=== PATIENT | female | born 1985 | race Caucasian/White ===

== ENCOUNTER → 2020-07-31 16:37 | Outpatient (BNVA) | payer SELFPAY | PROVIDERS: Family Provider Family Medicine; PCP Family Medicine; Visit Provider Nurse Practitioner Family | DX: M25.531 Pain in right wrist (principal); M25.431 Effusion, right wrist | CPT/HCPCS: 73110 ==

== ENCOUNTER → 2020-10-30 11:33 | Outpatient (BNVA) | payer MEDICAID, SELFPAY | PROVIDERS: Family Provider Family Medicine; PCP Family Medicine; Visit Provider Nurse Practitioner Women's Health | DX: Z32.01 Encounter for pregnancy test, result positive (principal); Z78.9 Other specified health status | CPT/HCPCS: 81025 ==

== ENCOUNTER → 2020-11-03 10:31 | Outpatient (BNVA) | payer MEDICAID, SELFPAY | PROVIDERS: Family Provider Family Medicine; PCP Family Medicine; Visit Provider Nurse Practitioner Women's Health | DX: Z32.01 Encounter for pregnancy test, result positive (principal); Z78.9 Other specified health status | CPT/HCPCS: 84702 ==

== ENCOUNTER → 2020-11-12 13:27 | Outpatient (BNVA) | payer MEDICAID, SELFPAY | PROVIDERS: Family Provider Family Medicine; PCP Family Medicine; Visit Provider Nurse Practitioner Women's Health | DX: Z34.80 Encounter for supervision of other normal pregnancy, unspecified trimester (principal) | CPT/HCPCS: 81000 ==

== ENCOUNTER → 2020-11-18 14:04 | Outpatient (BNVA) | payer MEDICAID, SELFPAY | PROVIDERS: Family Provider Family Medicine; PCP Family Medicine; Visit Provider Obstetrics & Gynecology | DX: Z34.80 Encounter for supervision of other normal pregnancy, unspecified trimester (principal); Z64.1 Problems related to multiparity | CPT/HCPCS: 80307; 84315; 86850; 86900; 87086 ==

== ENCOUNTER → 2020-11-24 10:00 | Outpatient (BNVA) | payer MEDICAID, SELFPAY | PROVIDERS: Family Provider Family Medicine; PCP Family Medicine; Visit Provider Obstetrics & Gynecology | DX: Z64.1 Problems related to multiparity (principal); Z34.80 Encounter for supervision of other normal pregnancy, unspecified trimester | CPT/HCPCS: 81000; 85025; 86592; 86762; 86803; 87340; 87491; 87591; 87661; 88175 ==

== ENCOUNTER → 2020-12-31 09:40 | Outpatient (BNVA) | payer SELFPAY | PROVIDERS: Family Provider Family Medicine; PCP Family Medicine; Visit Provider Nurse Practitioner Women's Health | DX: O09.90 Supervision of high risk pregnancy, unspecified, unspecified trimester (principal) | CPT/HCPCS: 81000; 87661 ==

== ENCOUNTER → 2021-02-02 08:15 | Outpatient (BNVA) | payer MEDICAID, SELFPAY | PROVIDERS: Family Provider Family Medicine; PCP Family Medicine; Visit Provider Obstetrics & Gynecology | DX: O09.90 Supervision of high risk pregnancy, unspecified, unspecified trimester (principal); Z3A.00 Weeks of gestation of pregnancy not specified | CPT/HCPCS: 81000 ==

== ENCOUNTER → 2021-02-23 10:20 | Outpatient (BNVA) | payer MEDICAID, SELFPAY | PROVIDERS: Family Provider Family Medicine; PCP Family Medicine; Visit Provider Nurse Practitioner Women's Health | DX: O09.90 Supervision of high risk pregnancy, unspecified, unspecified trimester (principal) | CPT/HCPCS: 81000 ==

== ENCOUNTER 2021-03-17 12:08 | Outpatient (CLI) | payer MEDICAID, SELFPAY ==
[2021-03-17] VITALS (13 sets, daily range): BP systolic 98–111; BP diastolic 53–59; PULSE 64–83; RESP 18; TEMP 36.2; BMI 31.0
[2021-03-17 13:00] LABS: Add Urine Microscopic? NO; Charge for UA Resulting for Rev
[2021-03-17 13:02] LABS: Basophils % 0.3 %; Eosinophils # 0.1 10^3/uL (0.0-0.8); Eosinophils % 1.1 %; Hematocrit 32.7 % (37.0-47.0); Hemoglobin 10.6 g/dL (11.5-15.3); Lymphocytes # 1.4 10^3/uL (0.8-4.8); Lymphocytes % 12.1 %; Mean Corpuscular HGB Conc 32.4 g/dL (30.0-36.0); Mean Corpuscular Hemoglobin 29.8 pg (28.0-34.0); Mean Corpuscular Volume 91.9 fl (81-99); Mean Platelet Volume 11.1 fL (7.4-10.4); Monocytes # 0.6 10^3/uL (0.2-0.9); Monocytes % 5.4 %; Neutrophils # 9.37 10^3/uL (1.8-7.7); Neutrophils % 80.8 %; Nucleated Red Blood Cells % 0 %; Platelet Count 191 10^3/cmm (130-400); Red Blood Count 3.56 10^6/uL (4.1-5.3); Red Cell Distribution Width 12.3 % (12.1-15.1); White Blood Count 11.6 10^3/uL (4.0-10.0)
[2021-03-17] MEDS: acetaminophen 500 mg Tablet 1000 MG PO (13:03)
[2021-03-17 13:31] LABS: Glucose Urine UA Norm (Normal); Ketones Urine 1+ (Negative); Protein Urine Neg (Negative); Specific Gravity, Urine 1.015 (1.005-1.030); Urine Appearance Clear (CLEAR); Urine Color Straw (Yellow); pH Urine 5 (5-7)
[2021-03-17 13:32] LABS: Bilirubin Urine Neg (Negative); Blood Urine Neg (Negative); Leukocyte Esterase Urine Negative (Negative); Nitrate Urine Negative (Negative); Urobilinogen Urine Norm (Negative)
[2021-03-17 14:37] LABS: Alanine Aminotransferase 9 U/L (0-33); Albumin Level 3.3 g/dL (3.5-5.2); Alkaline Phosphatase 53 IU/L (35-105); Anion Gap 13.5 (5-19); Aspartate Amino Transferase 11 U/L (0-32); Blood Urea Nitrogen 6 mg/dL (6-20); Calcium 7.7 mg/dL (8.5-10.5); Carbon Dioxide 22 mmol/L (22-29); Chloride 105 mmol/L (98-107); Globulin 2.2 g/dL (1.3-4.6); Glomerular Filtration Rate 181.6 mL/min (90-130); Glucose 87 mg/dL (65-115); Osmolality Calculated 281 mOsm/kg (285-295); Potassium 3.5 mmol/L (3.5-5.1); Sodium 137 mmol/L (136-145); Total Bilirubin 0.2 mg/dL (0.15-1.2); Total Protein 5.5 g/dL (6.6-8.7); Uric Acid 2.5 mg/dL (2.4-5.7)
[2021-03-17 15:32] LABS: Urine Creatinine 68 mg/dL (28-217); Urine Protein Random 9 mg/dL
[2021-03-17 15:35] LABS: UPRO/UCREAT Ratio 0.13 mg/mg CR
== END 2021-03-17 16:00 | disposition home or self-care (01) ==
LOC: OPOB 12:12 → OBGYN 12:14
PROVIDERS: Family Provider Family Medicine; PCP Family Medicine; Visit Provider Obstetrics & Gynecology
DX: O99.891 Other specified diseases and conditions complicating pregnancy (principal); R60.0 Localized edema; R51.9 Headache, unspecified
CPT/HCPCS: 36415; 80053; 81003; 82570; 84156; 84550; 85025; 99211

== ENCOUNTER → 2021-03-29 10:28 | Outpatient (BNVA) | payer MEDICAID, SELFPAY | PROVIDERS: Family Provider Family Medicine; PCP Family Medicine; Visit Provider Obstetrics & Gynecology | DX: O09.90 Supervision of high risk pregnancy, unspecified, unspecified trimester (principal); A59.01 Trichomonal vulvovaginitis | CPT/HCPCS: 81000; 82950; 85027; 87661 ==

== ENCOUNTER → 2021-04-05 08:11 | Outpatient (BNVA) | payer MEDICAID, SELFPAY | PROVIDERS: Family Provider Family Medicine; PCP Family Medicine; Visit Provider Obstetrics & Gynecology | DX: O09.90 Supervision of high risk pregnancy, unspecified, unspecified trimester (principal) | CPT/HCPCS: 81000; 82951; 82952; 87661 ==

== ENCOUNTER 2021-04-09 09:10 | Outpatient (CLI) | payer MEDICAID, SELFPAY ==
[2021-04-09 09:30] VITALS: BMI 32.2
[2021-04-09 09:31] VITALS: BP 116/74; PULSE 71
[2021-04-09 10:01] VITALS: BP 111/59; PULSE 68
[2021-04-09 11:59] VITALS: BP 111/59; PULSE 68; RESP 18; TEMP 36.8
== END 2021-04-09 10:10 | disposition home or self-care (01) ==
LOC: OPOB 09:20 → OBGYN 09:21
PROVIDERS: Family Provider Family Medicine; PCP Family Medicine; Visit Provider Obstetrics & Gynecology
DX: O36.8190 Decreased fetal movements, unspecified trimester, not applicable or unspecified (principal)
CPT/HCPCS: 59025; 99211

== ENCOUNTER 2021-04-18 08:38 | Outpatient (CLI) | payer MEDICAID, SELFPAY ==
[2021-04-18 08:38] VITALS: BMI 32.8
[2021-04-18 08:47] VITALS: BP 118/65; PULSE 78
--- NOTE | 2021-04-18 09:26 | USR_ITS ---
PROCEDURE INFORMATION: Exam: US Biophysical Profile Without Non-Stress Test Exam date and time: 04/18/2021 9:26 AM Age: 35 years old Clinical indication: Other: No accelerations; TECHNIQUE: Imaging protocol: US biophysical profile without non-stress testing. COMPARISON: US OB >= 14 weeks fetus [facility] 02/02/2021 7:48 AM FINDINGS: Gestation: There is a single viable intrauterine fetus in the vertex position. heart rate: heart rate is 141 BPM. BIOPHYSICAL PROFILE: Breathin/2 Gross body movements: 2/2 tone: 2/2 Qualitative amniotic fluid: 2/2 Biophysical Profile Score: 8/8 US/US OB BPP wo NST [id number] IMPRESSION: Biophysical profile score is 8 out of 8.
[2021-04-18 10:53] VITALS: BP 118/65; PULSE 78
[2021-04-18 17:30] LABS: Nitrazine Paper, PH Negative
== END 2021-04-18 10:53 | disposition home or self-care (01) ==
LOC: OPOB 08:41 → OBGYN 08:43
PROVIDERS: Family Provider Family Medicine; PCP Family Medicine; Visit Provider Obstetrics & Gynecology
DX: O26.899 Other specified pregnancy related conditions, unspecified trimester (principal); Z3A.00 Weeks of gestation of pregnancy not specified; R10.9 Unspecified abdominal pain; N89.8 Other specified noninflammatory disorders of vagina
CPT/HCPCS: 59025; 76819; 83986; 99211

== ENCOUNTER 2021-04-21 12:27 | Outpatient (CLI) | payer MEDICAID, SELFPAY ==
[2021-04-21] VITALS (8 sets, daily range): BP systolic 108–117; BP diastolic 54–61; PULSE 75–84; RESP 17; TEMP 36; BMI 33.7
[2021-04-21 13:30] LABS: Actim Prom Negative
== END 2021-04-21 14:01 | disposition home or self-care (01) ==
LOC: OPOB 12:37 → OBGYN 12:41
PROVIDERS: Obstetrics & Gynecology; Family Provider Family Medicine; PCP Family Medicine; Visit Provider Obstetrics & Gynecology
DX: O36.8190 Decreased fetal movements, unspecified trimester, not applicable or unspecified (principal); Z3A.00 Weeks of gestation of pregnancy not specified; N89.8 Other specified noninflammatory disorders of vagina
CPT/HCPCS: 59025; 81000; 84112; 87661; 99211

== ENCOUNTER 2021-04-28 20:05 | Outpatient (CLI) | payer MEDICAID, SELFPAY ==
[2021-04-28 20:18] VITALS: BP 137/59; PULSE 86; TEMP 35.5
[2021-04-28 20:27] VITALS: RESP 16
[2021-04-28 20:30] VITALS: BMI 33.5
[2021-04-28 20:33] VITALS: BP 107/57; PULSE 81
[2021-04-28 20:43] VITALS: BP 107/61; PULSE 78
[2021-04-28 20:52] LABS: Add Urine Culture? No; Bacteria Urine 1+ /hpf; Bilirubin Urine Neg (Negative); Blood Urine Neg (Negative); Glucose Urine UA Norm (Normal); Ketones Urine 1+ (Negative); Leukocyte Esterase Urine Negative (Negative); Nitrate Urine Negative (Negative); Protein Urine Neg (Negative); RBC Urine 0-4 /hpf (0-2); Urine Appearance Clear (CLEAR); Urine Color Yellow (Yellow); Urobilinogen Urine Norm (Negative); pH Urine 7 (5-7)
[2021-04-28 20:53] VITALS: BP 111/59; PULSE 85
[2021-04-28 21:08] VITALS: BP 104/55; PULSE 74
== END 2021-04-28 21:47 | disposition home or self-care (01) ==
LOC: OPOB 20:10 → OBGYN 20:10
PROVIDERS: Family Provider Family Medicine; PCP Family Medicine; Visit Provider Obstetrics & Gynecology
DX: O26.899 Other specified pregnancy related conditions, unspecified trimester (principal); Z3A.00 Weeks of gestation of pregnancy not specified; R10.9 Unspecified abdominal pain
CPT/HCPCS: 59025; 81001; 99211

== ENCOUNTER → 2021-05-04 12:08 | Outpatient (BNVA) | payer MEDICAID, SELFPAY | PROVIDERS: Family Provider Family Medicine; PCP Family Medicine; Visit Provider Obstetrics & Gynecology | DX: O09.90 Supervision of high risk pregnancy, unspecified, unspecified trimester (principal) | CPT/HCPCS: 81000 ==

== ENCOUNTER 2021-05-06 10:40 | Outpatient (CLI) | payer MEDICAID, SELFPAY ==
[2021-05-06 10:59] VITALS: BP 107/56; PULSE 80
[2021-05-06 11:16] VITALS: BP 109/56; PULSE 80
[2021-05-06 11:30] VITALS: BP 101/58; PULSE 79
[2021-05-06 11:41] VITALS: BMI 33.5
[2021-05-06 12:34] LABS: Nitrazine Paper, PH Negative
== END 2021-05-06 12:00 | disposition home or self-care (01) ==
LOC: OPOB 10:48 → OBGYN 10:50
PROVIDERS: Family Provider Family Medicine; PCP Family Medicine; Visit Provider Obstetrics & Gynecology
DX: O26.899 Other specified pregnancy related conditions, unspecified trimester (principal); Z3A.00 Weeks of gestation of pregnancy not specified; N89.8 Other specified noninflammatory disorders of vagina
CPT/HCPCS: 59025; 83986; 99211

== ENCOUNTER 2021-05-10 20:50 | Outpatient (CLI) | payer MEDICAID, SELFPAY ==
[2021-05-10] VITALS (7 sets, daily range): BP systolic 106–117; BP diastolic 55–67; PULSE 67–81; RESP 18; BMI 33.6
[2021-05-10] MEDS: acetaminophen 325 mg Tablet 650 MG PO (21:47)
[2021-05-10 21:52] LABS: Add Urine Culture? No; Add Urine Microscopic? YES; Bacteria Urine 1+ /hpf; Bilirubin Urine Neg (Negative); Blood Urine Neg (Negative); Glucose Urine UA Norm (Normal); Ketones Urine Negative (Negative); Leukocyte Esterase Urine 2+ (Negative); Nitrate Urine Negative (Negative); Protein Urine Neg (Negative); RBC Urine 0-4 /hpf (0-2); Specific Gravity, Urine 1.005 (1.005-1.030); Urine Appearance SL Hazy (CLEAR); Urine Color Colorless (Yellow); Urobilinogen Urine Norm (Negative); WBC Urine 55-80 /hpf (0-5); pH Urine 6.5 (5-7)
== END 2021-05-10 23:21 | disposition home or self-care (01) ==
LOC: OPOB 20:55 → OBGYN 20:55
PROVIDERS: Family Provider Family Medicine; PCP Family Medicine; Visit Provider Obstetrics & Gynecology
DX: O26.899 Other specified pregnancy related conditions, unspecified trimester (principal); Z3A.00 Weeks of gestation of pregnancy not specified; R10.9 Unspecified abdominal pain; R60.9 Edema, unspecified; R51.9 Headache, unspecified
CPT/HCPCS: 59025; 81001; 99211

== ENCOUNTER 2021-05-11 10:51 | Inpatient (IN) | payer MEDICAID, SELFPAY ==
[2021-05-11] VITALS (20 sets, daily range): BP systolic 108–130; BP diastolic 55–74; PULSE 61–88; RESP 16–18; TEMP 35.3–37
[2021-05-11] MEDS: betamethasone susp 6 mg/mL 5 mL 12 MG IM (11:16)
[2021-05-11] MEDS: dextrose 5%-lactated ringers 1,000 ML 125 ML IV ×2 (11:17→19:37)
[2021-05-11 11:39] LABS: Basophils % 0.3 %; Eosinophils # 0.1 10^3/uL (0.0-0.8); Eosinophils % 0.4 %; Hematocrit 32.3 % (37.0-47.0); Hemoglobin 10.6 g/dL (11.5-15.3); Lymphocytes # 1.1 10^3/uL (0.8-4.8); Lymphocytes % 7.3 %; Mean Corpuscular HGB Conc 32.8 g/dL (30.0-36.0); Mean Corpuscular Hemoglobin 29.4 pg (28.0-34.0); Mean Corpuscular Volume 89.7 fl (81-99); Mean Platelet Volume 11.7 fL (7.4-10.4); Monocytes # 0.8 10^3/uL (0.2-0.9); Monocytes % 5.5 %; Neutrophils # 12.76 10^3/uL (1.8-7.7); Neutrophils % 85.9 %; Nucleated Red Blood Cells % 0 %; Platelet Count 195 10^3/cmm (130-400); Red Cell Distribution Width 13.2 % (12.1-15.1); White Blood Count 14.9 10^3/uL (4.0-10.0)
--- NOTE | 2021-05-11 12:00 | PM.OBGYHP ---
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 She had been seen on 05/10/2021 in labor and delivery for contractions which subsided and she was intact at that time and her cervix was 1 cm, 20% and -4 station.. She states that she woke up this morning and felt a little gush which she thought was urine and she was not very concerned. It was clear however did not smell like urine. She did report having irregular contractions. She states that she placed a panty liner and when she started saturating pantiliners rapidly she knew something was wrong and came in for evaluation. Upon evaluation on Labor and Delivery overall category 1 tracing with occasional variables that resolved with position change. She was pauline irregularly every 3 to 6 minutes. Cervix was 3 cm, 50% and -4 station and cephalic. Present Details : 17 Para: 7 Labs Rubella: Immune RPR: Negative GBS: Unknown Review of Systems General: Reports: 10 or more systems reviewed and unremarkable except in HPI and below Const: Denies: fever(s), chills, change in appetite, change in weight, fatigue, malaise or change in sleep pattern Eyes: Denies: change in vision, eye discomfort, eye discharge or seeing flashes ENMT: Denies: throat pain, odynophagia, hoarseness, bleeding gums, ear discharge, nasal discharge or nasal congestion Card: Denies: chest pain, irregular heart rhythm, edema, swelling of feet/ankles, dyspnea on exertion or leg pain with exertion Resp: Denies: dyspnea, productive cough, wheezing or chest congestion GI: Denies: abdominal pain, nausea, vomiting, heartburn, diarrhea, constipation, change in bowel habits or hematochezia : Reports: vaginal discharge; Denies: flank pain, dysuria, urinary frequency, urinary urgency, urinary incontinence, genital lesions, vaginal odor, vaginal bleeding, dysmenorrhea, change in menstrual flow, prolapse symptoms, dyspareunia or sexual dysfunction Musc: Reports: back pain; Denies: neck pain, joint pain, joint swelling or muscle cramps Skin/Breast: Denies: rash, pruritus, breast tenderness, nipple discharge or breast mass Neuro: Denies: headache(s), numbness in extremities or seizure-like activity Psych: Denies: anxiety, depression, mood swings or change in appetite Endo: Denies: cold intolerance, flushing, hot flashes or change in body appearance Juan/Lymph: Denies: easy bruising, easy bleeding or enlarged lymph nodes All/Imm: Denies: urticaria, tongue swelling, acute wheezing or itchy eyes Medications/Allergies Home Medications Medication Instructions Recorded Confirmed Last Taken Type No Known Home Medications 05/10/21 05/10/21 Unknown History Allergies Allergy/AdvReac Type Severity Reaction Status Date / Time cephalexin [From Keflex] Allergy Mild rash Verified 05/10/21 22:56 latex Allergy Mild ALGY-Rash Verified 05/10/21 22:56 ceftriaxone [From Rocephin] AdvReac Mild ALGY-Swell Verified 05/10/21 22:56 Lip/Tongue/Throat citalopram [From Celexa] AdvReac Mild ALGY-Anaphy Verified 05/10/21 22:56 laxis amoxicillin AdvReac ALGY-Rash Verified 05/10/21 22:56 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 Was on medication then. She thinks it was Zoloft. She does report anxiety and being worried on and off since then and has been on medication in the past but not since 2008-- she tried celexa but had a type of anaphylaxis reaction and has not been on medication since that time. No pertinent past medical history Denies diabetes, asthma, hypertension, seizures, DVT/PE PCP: Dr. Arabella Pozo Surgical History H/O dilation and curettage X 2 --- 05/18/2012-bleeding after Cytotec induction for a missed --performed by Dr. Rodrigues at [facility] [place] ----02/13/2013--- done for vaginal bleeding after Cytotec induction of a missed performed by Dr. Samuel Villa at [facility] [place] Family History Grandmother Diabetes maternal Stroke maternal great grandmother Father Stroke Denies family history of Colon cancer Ovarian cancer Heart disease Hyperlipidemia Breast cancer Hypertension Uterine cancer Thyroid condition Supplemental [facility] Information: - Tobacco Use: Started smoking at age 16 and smoked up to 2 packs per day until until 11/04/20 when she quit smoking for . Started smoking again mid March 2021 and currently smokes up to one pack per day. 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 Last Well Woman Appointment: Unknown per patient. Other Female Reproductive History: Menstrual History Comment: Menarche at the age of 13 with regular 28-day cycles lasting for 3 to 4 days. Sexual History: Sexual History Comment: Coitarche at age 16, more than 5 lifetime partners, has been with her current partner, Greyson since 2015. He also works at [employer] with her. STD History Comment: Denies history of sexually transmitted diseases. Denies history of herpes in her or her partner --- diagnosed with trichomonas in her in 2020 and was treated Contraception: Contraception History Comment: She has used oral contraceptives and condoms in the past for contraception. -->She desires sterilization for contraception -vasectomy History History History 16 Term 7 Miscarriages/Ectopic 7 1 Living Children 8 Other History: G16 P 7178 x 8, SAB x 7 - 1--->08/26/2002. Male,(Anirudh) 6 lbs. 3-1/2 oz., 40 weeks, 6 hours labor. No anesthesia. Vaginal delivery. Delivered by Dr. Arabella Pozo at [facility] in [place], [place]. Complicated by uterine inversion---patient taken to the OR by Dr. Samuel Villa for replacement of uterus. 2--->05/18/2004. Female, (Shu), 7 lbs. 7 oz., 39 weeks, 13 hours labor. No anesthesia. Vaginal delivery. Delivered by Dr. Arabella Pozo at [facility] in [place], [place]. Complicated by hemorrhage. 3--->10/2004, Miscarriage at 5-6 weeks gestation. No D & C required. 4--->05/2006, Miscarriage at 5-6 weeks' gestation. No D & C required. 5---> 05/20/2007. Male, (Sofie), 6 lbs. 11 oz., 40-0/7 weeks, 12 hours labor. No anesthesia. Vaginal delivery. Delivered by Dr. Francis Nayak at [facility] in [place], [place]. 6---> 06/2008 SAB at 5 weeks, required D & C. 7---> 06/07/2009, Female, (Garrett), 7 lbs., 39 weeks,. Vaginal delivery. Delivered by Dr. Polo at [place], [place]. 8---> 11/2009, SAB at 6 weeks, D & C required. 9--->01/2011, SAB at 12 weeks, D & C required. 10---> 11/08/2011. Female, (Geri), 6 lbs. 6 oz., 37 weeks, 4 hours labor. No anesthesia. Vaginal delivery. Delivered by Dr. Polo at [facility] in [place], [place]. 11---> 05/18/2012. Missed at 15 weeks gestation. Induced delivery with D&C for retained placenta 12--->02/13/2013, Missed at 17-6/7 weeks gestation. Induced delivery by Dr. Samuel Villa at [facility] in [place], [place]. Retained placenta treated by D&C. 13---> 12/05/2013, Male, (Kavon), 6 lbs. 2-1/2 oz., 36-6/7 weeks. No anesthesia. Vaginal delivery. Delivered by Dr. Corazon Rodrigues and [facility] in [place], [place]. 14--->02/22/2015, Male, (Olu). 7 lbs., 13.5 oz., 39-0/7 weeks gestation. Vaginal Delivery. Induced delivery by Dr. Samuel Villa at [facility] in [place], [place]. 15---> 01/15/2018, Male, (Ivan), 6 lbs. 12 oz., 39-1/7 weeks gestation. Vaginal delivery. Induction for premature rupture of membranes. Delivered by Dr. De Anda at [facility] in [place], [place]. 16---> Current Care HARINDER Calculator Estimated Delivery Date Method Current WG Current Estimate 06/12/21 Ultrasound #1 36w 4d Other Estimates 06/05/21 LMP (Uncertain) 37w 4d 06/12/21 Manual 36w 4d CHANGED PER KIN Expected Delivery Route/Plan Vaginal Specific Issues/Plans ADVANCED MATERNAL AGE-declined NIPT ANXIETY AND DEPRESSION-not on medication in the GRAND MULTIPARA/HISTORY HEMORRHAGE--WITH SECOND DELIVERY IN 2004-NONE SINCE THEN TOBACCO USE-stopped at the start of , restarted 1 pack/day at 28 weeks REQUEST FOR STERILIZATION-Medicaid consent signed on 03/29/2021 TRICHOMONAS- status post treatment at 12 weeks with positive test at 16 weeks and again at 28 weeks-repeat screening with cervical swab-done on 04/05/2021 which was positive-completed a 2-week course on 04/30/2021 Vitals/I&O/Wt Last Vital Signs Temp 100.9 F H 05/11/21 09:06 Pulse 77 05/11/21 15:09 BP 130/74 05/11/21 15:09 Weight last 48 hrs Weight 217 lb Physical Exam Narrative: EXAM NARRATIVE: Grossly ruptured-cervix is 3 to 4 cm EFM: 140, moderate variability, accelerations, no decelerations Contractions-every 4 to 6 minutes. Data : 05/13/21 04:37 05/11/21 11:18 A&P Assessment and plan (1) premature rupture of membranes: -Discussed with Ms. Serrano that since her water is ruptured and she is35 weeks and 3 days she cannot be discharged home and will need to stay in the hospital. Discussed options for patient--- observation until 37 weeks and 0 days followed by induction and delivery as long as there is no sign of infection or abruption or distress. She understands that she will be admitted inpatient throughout this time. She may require antibiotics for GBS prophylaxis until GBS results can be obtained. Discussed advantages of this is to decrease the risk of prematurity and allow steroids to be on board. Discussed risks associated with this which is increased neonatally risk of action, possible abruption and possible malpresentation. -Discussed second option of induction of labor. She is already received 1 dose of steroids and she is already on antibiotics for GBS prophylaxis given unknown GBS status. Discussed that the advantages of this is decreased risk of infection were baby however there is still the risk of prematurity. Each of these options was discussed with patient in great detail and all her questions were answered. -She states that she would like to be induced as she is worried about the risk of infection. She was also concerned that the baby had a variable deceleration and is worried about overall health. All patient's questions were answered and we will proceed with augmentation of labor for premature rupture of membranes at 35 weeks and 3 days. -Instrument And Control Technician notified and to be present at time of delivery. -Continue antibiotics for GBS prophylaxis-vancomycin since she is pen allergic and GBS unknown -Steroids--she is a grand multiparity so I think it is unlikely that she will be able to get the second dose and she understands this. -Will observe for 2 to 4 hours to allow antibiotics to get in and see if she progresses into labor since she is pauline and if not we will augment labor with Pitocin. Patient's understands the risk that if baby does not breathe well. We may need to be transferred to [place]. -Increased risk for hemorrhage-precautions reviewed patient was willing to accept a blood transfusion --All her questions were answered and she agrees with the current plan of care. I spent 45 minutes with the patient in discussion and counseling as documented above This documentation was created by [employer] physiotherapy practice manager software (known for inherent physiotherapy practice manager error). Every effort was made to assure accuracy of physiotherapy practice manager. Any obvious errors or omissions should be clarified with the author of the document. Status: Acute Attestations Medical Necessity Statement*: Patient will need to be admitted for premature rupture of membranes at delivery and recovery which would likely take more than 2-3 midnights Coding Level of Care Code Acute Mail Carriers Supervisor for Agustín Penn Diagnoses premature rupture of membranes O42.919
[2021-05-11 12:01] LABS: Alanine Aminotransferase 13 U/L (0-33); Albumin Level 3.5 g/dL (3.5-5.2); Alkaline Phosphatase 120 IU/L (35-105); Anion Gap 14.6 (5-19); Aspartate Amino Transferase 14 U/L (0-32); Blood Urea Nitrogen 6 mg/dL (6-20); Carbon Dioxide 20 mmol/L (22-29); Chloride 104 mmol/L (98-107); Globulin 2.5 g/dL (1.3-4.6); Glomerular Filtration Rate 181.6 mL/min (90-130); Glucose 73 mg/dL (65-115); Osmolality Calculated 276 mOsm/kg (285-295); Potassium 3.6 mmol/L (3.5-5.1); Sodium 135 mmol/L (136-145); Total Bilirubin 0.2 mg/dL (0.15-1.2)
[2021-05-11 15:55] LABS: Adenovirus Not Detected (NOT DETECT); Chlamydia Pneumoniae Not Detected (NOT DETECT); Coronavirus 229E,HKU1,NL63,OC4 Not Detected (NOT DETECT); Human Metapneumovirus Not Detected (NOT DETECT); Human Rhinovirus/Enterovirus Not Detected (NOT DETECT); Influenza A Not Detected (NOT DETECT); Influenza A H1 Not Detected (NOT DETECT); Influenza A H1-2009 Not Detected (NOT DETECT); Influenza A H3 Not Detected (NOT DETECT); Influenza B Not Detected (NOT DETECT); Mycoplasma Pneumoniae Not Detected (NOT DETECT); Parainfluenza Virus Type 1 Not Detected (NOT DETECT); Parainfluenza Virus Type 2 Not Detected (NOT DETECT); Parainfluenza Virus Type 3 Not Detected (NOT DETECT); Parainfluenza Virus Type 4 Not Detected (NOT DETECT); Respiratory Syncytial Virus A Not Detected (NOT DETECT); Respiratory Syncytial Virus B Not Detected (NOT DETECT); SARS-COV-2 Not Detected (NOT DETECT)
--- NOTE | 2021-05-11 21:23 | P.PCNOB_ITS ---
Delivery Note: Date of delivery: May 11, 2021 Pre-delivery diagnoses: iup @35w3d Post-delivery diagnoses: same Procedure: Op report anesthesia: None Delivering Physician: sudha Estimated blood loss (mL): 5 Findings: term female in the cephalic presentation Pre-Delivery Course: The patient was admitted for PPROM. She had vancomycin started for GBS prophylaxis in a . She received one dose of betamethasone. She had pitocin started for labor augmentation. She had complete cervical dilation Delivery: The patient had complete cervical dilation and began to push. The head delivered in the [ ] position over an intact perineum under no anesthesia. The nose and mouth were bulb suctioned. The shoulders and body delivered atraumatically. The baby was placed onto the mother's abdomen. The cord was clamped and cut. Cord blood was obtained. The placenta delivered spontaneously. It was inspected and found to be intact. Inspection of the perineum revealed an repair of five. Estimated blood loss 5 mL. Apgars on baby were nine at 1 minute and nine at 5 minutes. Weight of baby is pounds 11 ounces. Mother and baby were stable post delivery. History History History 16 Term 7 Miscarriages/Ectopic 7 1 Living Children 8 Coding Level of Care Code Acute Black Mill Operator for Chg Isamar
[2021-05-12] VITALS (11 sets, daily range): BP systolic 98–117; BP diastolic 57–67; PULSE 59–72; RESP 17–18; TEMP 36.9–37; O2SAT 96
[2021-05-12] MEDS: prenatal vitamin Capsule 1 CAP PO (08:50)
[2021-05-12] MEDS: ibuprofen 800 mg tablet PO ×3 (08:50→21:13)
[2021-05-12] MEDS: docusate sodium 100 mg Capsule PO (08:50)
[2021-05-12 13:12] LABS: Hematocrit 31.2 % (37.0-47.0); Hemoglobin 10.1 g/dL (11.5-15.3); Mean Corpuscular HGB Conc 32.4 g/dL (30.0-36.0); Mean Corpuscular Volume 92.6 fl (81-99); Mean Platelet Volume 11.9 fL (7.4-10.4); Platelet Count 197 10^3/cmm (130-400); Red Blood Count 3.37 10^6/uL (4.1-5.3); Red Cell Distribution Width 13.2 % (12.1-15.1); White Blood Count 20.4 10^3/uL (4.0-10.0)
--- NOTE | 2021-05-12 15:19 | P.PN_ITS ---
Vitals/I&O/Wt Last Vital Signs Temp 97.0 F L 05/11/21 23:38 Pulse 70 05/12/21 05:28 Resp 16 05/11/21 21:23 BP 111/62 05/12/21 05:28 05/12/21 05/12/21 05/12/21 06:59 14:59 22:59 Output Total 1200 / 1200 Balance -1200 / 300 Weight last 48 hrs Weight 217 lb Physical Exam Narrative: EXAM NARRATIVE: The patient is doing well this morning. Her only concern is the swelling in her lower extremities. She is bottle feeding. Otherwise she is ambulating, using the bathroom, tolerating a regular diet. pain is well controlled and normal lochia Const: COMMON NORMALS: no acute distress, patient oriented x3, no limitations, healthy appearing, alert and well nourished GENERAL APPEARANCE: cooperative, comfortable, well kempt and well developed ORIENTATION/CONSCIOUSNESS: Yes awake, Yes oriented to person, Yes oriented to place and Yes oriented to time Resp: COMMON NORMALS: normal respiratory effort EFFORT & INSPECTION: Yes able to speak in complete sentences GI: COMMON NORMALS: Soft to palpation and non-tender PALPATION: Yes Soft to palpation Extremity: COMMON NORMALS: no calf tenderness Neuro: COMMON NORMALS: patient oriented x3 SENSORIUM/ORIENTATION: Yes alert, Yes oriented to person, Yes oriented to place and Yes oriented to time Psych: COMMON NORMALS: mental status grossly normal, Normal thought process present, cooperative, normal affect and speech normal APPEARANCE: Yes grossly normal and Yes well kempt ATTITUDE: Yes calm and Yes engaged ACTIVITY/MOTOR BEHAVIOR: Yes appropriate eye contact SPEECH: Yes normal speech THOUGHT PROCESS: Normal thought process present Data : 05/12/21 12:00 05/11/21 11:18 Attestations Medical Necessity Statement*: The patient is expected to be here until tomorrow Coding Level of Care Code Acute Acoustical Logging Engineer for Agustín Penn
[2021-05-12] MEDS: FUROsemide 40 mg Tablet PO (15:49)
[2021-05-13 03:32] VITALS: BP 109/67; PULSE 64; TEMP 36.8; O2SAT 97
[2021-05-13 04:43] LABS: Basophils # 0.1 10^3/uL (0.0-0.1); Basophils % 0.4 %; Eosinophils # 0.1 10^3/uL (0.0-0.8); Eosinophils % 0.5 %; Hematocrit 30.5 % (37.0-47.0); Hemoglobin 9.7 g/dL (11.5-15.3); Lymphocytes # 2.3 10^3/uL (0.8-4.8); Lymphocytes % 15.6 %; Mean Corpuscular HGB Conc 31.8 g/dL (30.0-36.0); Mean Corpuscular Hemoglobin 29.1 pg (28.0-34.0); Mean Corpuscular Volume 91.6 fl (81-99); Mean Platelet Volume 11.5 fL (7.4-10.4); Monocytes # 0.9 10^3/uL (0.2-0.9); Neutrophils # 11.37 10^3/uL (1.8-7.7); Neutrophils % 76.6 %; Nucleated Red Blood Cells % 0 %; Platelet Count 166 10^3/cmm (130-400); Red Blood Count 3.33 10^6/uL (4.1-5.3); Red Cell Distribution Width 13.4 % (12.1-15.1); White Blood Count 14.9 10^3/uL (4.0-10.0)
[2021-05-13 10:10] VITALS: BP 108/65; PULSE 72; RESP 16; TEMP 36.9; O2SAT 96
[2021-05-13] MEDS: ibuprofen 800 mg tablet PO (10:17)
--- NOTE | 2021-05-13 10:59 | PC.NURSE ---
Pitocin Titrations 05/11/21 Pitocin was not scanned and initiated by previous nurse, when I took over care on this patient the pitocin was running at 12. 2000 Increased to 14 2030 Increased to 16 2117 Increased to 600 2147 Decreased to 100 2300 Infusion Complete.
--- NOTE | 2021-05-13 12:15 | PM.DCS ---
Discharge Providers Date of Admission: 05/11/21 10:51 Date of Discharge: May 13, 2021 Attending Provider at Admission: Wanda Jackson MD Attending Provider at Discharge: Wanda Jackson MD Primary Care Provider: Arabella Pozo MD Reason for Visit Reason for Visit: Loss of fluid Hospital Course Hospital Course The patient was admitted for PPROM. She was admitted and pitocin started. she had vaginal delivery of a . She did well and was ready for discharge on day #2 Physical Exam Narrative: EXAM NARRATIVE: The patient is doing well today. No concerns. She is requesting discharge Const: COMMON NORMALS: no acute distress, patient oriented x3, no limitations, healthy appearing, alert and well nourished GENERAL APPEARANCE: cooperative, comfortable, well kempt and well developed ORIENTATION/CONSCIOUSNESS: Yes awake and Yes oriented to time Resp: COMMON NORMALS: normal respiratory effort EFFORT & INSPECTION: Yes able to speak in complete sentences GI: COMMON NORMALS: Soft to palpation and non-tender PALPATION: Yes Soft to palpation Extremity: COMMON NORMALS: no calf tenderness Neuro: COMMON NORMALS: patient oriented x3 SENSORIUM/ORIENTATION: Yes alert and Yes oriented to time Psych: COMMON NORMALS: mental status grossly normal, Normal thought process present, cooperative, normal affect and speech normal APPEARANCE: Yes grossly normal and Yes well kempt ATTITUDE: Yes calm and Yes engaged ACTIVITY/MOTOR BEHAVIOR: Yes appropriate eye contact SPEECH: Yes normal speech THOUGHT PROCESS: Normal thought process present Discharge Data Data Completed and Pending: Labs from last 24 hours 05/13/21 05/12/21 04:37 12:00 WBC 14.9 H 20.4 H RBC 3.33 L 3.37 L Hgb 9.7 L 10.1 L Hct 30.5 L 31.2 L MCV 91.6 92.6 MCH 29.1 30.0 MCHC 31.8 32.4 RDW 13.4 13.2 Plt Count 166 197 MPV 11.5 H 11.9 H Neut % (Auto) 76.6 Lymph % (Auto) 15.6 [place] % (Auto) 6.0 Eos % (Auto) 0.5 Baso % (Auto) 0.4 Neut # (Auto) 11.37 H Lymph # (Auto) 2.3 [place] # (Auto) 0.9 Eos # (Auto) 0.1 Baso # (Auto) 0.1 Nucleated RBC % (a uto) 0 Nucleated RBCs # 0.0 Vitals: Last Vital Signs Temp 98.4 F 05/13/21 10:10 Pulse 72 05/13/21 10:10 Resp 16 05/13/21 10:10 BP 108/65 05/13/21 10:10 Pulse Ox 96 05/13/21 10:10 Discharge Plan Discharge Patient Disposition: Home Condition: Stable Prescriptions: Continued No Known Home Medications RF: 0 Discharge Orders: Discharge Order (Routine); Ordered 05/13/21 Ordered By: Mounika Thompson Patient Instructions: Depression (DC), Bleeding (DC), Preeclampsia and Eclampsia After Delivery (GEN), OB Discharge Report, OB Food/Drug Interaction Guide, Opioid Safety, OB Home Care, OB Proud Parent Packet, OB Vaginal Deliveries - [facility] Discharge Attestations Time Spent in Discharge Care*: less than 30 min Quality Metrics Clinical Quality Measures During this hospital stay, did patient experience: None Coding Level of Care Code Acute Chg FW DC note
[2021-05-13 16:00] VITALS: BP 115/75; PULSE 66; RESP 16; TEMP 36.7; O2SAT 98
== END 2021-05-13 16:35 | disposition home or self-care (01) | DRG 807 ==
LOC: OBGYN 10:57
PROVIDERS: Obstetrics & Gynecology; Admitting Provider Obstetrics & Gynecology; PCP Family Medicine; Visit Provider Obstetrics & Gynecology
DX: O42.013 Preterm premature rupture of membranes, onset of labor within 24 hours of rupture, third trimester (principal); Z37.0 Single live birth; O99.334 Smoking (tobacco) complicating childbirth; F17.210 Nicotine dependence, cigarettes, uncomplicated; Z3A.35 35 weeks gestation of pregnancy
CPT/HCPCS: 36415; 59409; 80053; 85025; 85027; 87491; 87591; 87635; 96372; 99211; J0702; J3370; J7040

== ENCOUNTER → 2021-12-09 15:10 | Outpatient (BNVA) | payer MEDICAID, SELFPAY | PROVIDERS: PCP Family Medicine; Visit Provider Nurse Practitioner Women's Health | DX: N93.9 Abnormal uterine and vaginal bleeding, unspecified (principal); A59.01 Trichomonal vulvovaginitis | CPT/HCPCS: 87491; 87591; 87661 ==

== ENCOUNTER 2021-12-18 09:43 | Emergency (ER) | payer MEDICAID, SELFPAY ==
--- NOTE | 2021-12-18 09:49 | W.ED.SKABFB ---
HPI - Skin/Abscess/Foreign Bdy General: Stated complaint: Face swelling Time Seen by Provider: 12/18/21 09:46 PFSH ED PFSH: Medical History Anxiety and depression Reports history of depression after her third child in 2007. Was on medication then. She thinks it was Zoloft. She does report anxiety and being worried on and off since then and has been on medication in the past but not since 2008-- she tried celexa but had a type of anaphylaxis reaction and has not been on medication since that time. No pertinent past medical history Denies diabetes, asthma, hypertension, seizures, DVT/PE PCP: Dr. Arabella Pozo Surgical History H/O dilation and curettage X 2 --- 05/18/2012-bleeding after Cytotec induction for a missed --performed by Dr. Rodrigues at [facility] [place] ----02/13/2013--- done for vaginal bleeding after Cytotec induction of a missed performed by Dr. Samuel Villa at [facility] [place] Family History Grandmother Diabetes maternal Stroke maternal great grandmother Father Stroke Denies family history of Colon cancer Ovarian cancer Heart disease Hyperlipidemia Breast cancer Hypertension Uterine cancer Thyroid condition Social History Smoking and tobacco status: current every day smoker Female Reproductive History: Spontaneous abortions: No Discharge Plan Discharge Condition: Stable Prescriptions: No Action norethindrone (contraceptive) 0.35 mg tablet 0.35 mg PO DAILY Qty: 84 0RF sulfamethoxazole-trimethoprim 800-160 mg tablet 1 tab PO BID 10 Days Qty: 20 0RF metronidazole 500 mg tablet 500 mg PO BID 7 Days Qty: 14 0RF Referrals: Arabella Pozo MD [Primary Care Provider] - Coding Level of Care Code ED Can Cutter for Agustín Penn
[2021-12-18 10:23] VITALS: BP 141/90; PULSE 69; RESP 15; TEMP 36.8; O2SAT 98; BMI 29.0
--- NOTE | 2021-12-18 10:36 | W.ED.GENADLT ---
HPI - General Adult General: Chief complaint: General Medical Stated complaint: Face swelling Time Seen by Provider: 12/18/21 09:46 Source: patient Mode of arrival: ambulatory Limitations: no limitations History of Present Illness: Patient is a 36-year-old female who presents to ED today for a complaint of right-sided facial swelling that began yesterday and into today. Patient states she has noticed some swelling above one of her right upper teeth and knows she has cracked bad teeth . Patient was treated recently at a walk-in clinic for a folliculitis/facial abscess on the left side of her face. She is currently taking Bactrim and states the lesion has improved significantly. Onset (ago): day(s) Location: face Pain Consistency: constant Relieving factors: none Exacerbating factors: none Associated symptoms: Reports other (dental pain); Deny chest pain, dyspnea, headache(s), malaise, rash or vomiting Review of Systems Const: Denies: fever(s), chills, body aches, fatigue or malaise Eyes: Denies: change in vision or blurry vision ENMT: Reports: dental pain and other (facial swelling); Denies: throat pain, odynophagia, mouth pain, swelling of lips/tongue, oral sores, ear discharge, nasal discharge, nasal congestion, post nasal drip or sinus pain Card: Denies: chest pain Resp: Denies: dyspnea GI: Denies: abdominal pain, vomiting or diarrhea : Denies: flank pain or dysuria Musc: Denies: neck pain Skin/Breast: Denies: rash Neuro: Denies: headache(s) PFS ED PFSH: Medical History Anxiety and depression Reports history of depression after her third child in 2007. Was on medication then. She thinks it was Zoloft. She does report anxiety and being worried on and off since then and has been on medication in the past but not since 2008-- she tried celexa but had a type of anaphylaxis reaction and has not been on medication since that time. No pertinent past medical history Denies diabetes, asthma, hypertension, seizures, DVT/PE PCP: Dr. Arabella Pozo Surgical History H/O dilation and curettage X 2 --- 05/18/2012-bleeding after Cytotec induction for a missed --performed by Dr. Rodrigues at [facility] [place] ----02/13/2013--- done for vaginal bleeding after Cytotec induction of a missed performed by Dr. Samuel Villa at [facility] [place] Family History Grandmother Diabetes maternal Stroke maternal great grandmother Father Stroke Denies family history of Colon cancer Ovarian cancer Heart disease Hyperlipidemia Breast cancer Hypertension Uterine cancer Thyroid condition Social History Smoking and tobacco status: current every day smoker Female Reproductive History: Spontaneous abortions: No Physical Exam Const: COMMON NORMALS: no acute distress, patient oriented x3, no limitations and alert ORIENTATION/CONSCIOUSNESS: Yes awake, Yes oriented to person, Yes oriented to place and Yes oriented to time HENMT: COMMON NORMALS: normocephalic, atraumatic, hearing grossly normal bilaterally, external ears normal, EAC's normal, TM's normal bilaterally, Normal external nose present, Normal nasal mucous membranes and turbinates present and oropharynx normal HEAD & SCALP: normal to inspection, normocephalic and atraumatic HEAD IMAGES: 1. small nickel sized abscess that appears to be healing well-patient states it has significant decreased in size FACE & SINUS: other (R sided facial swelling; no submandibular/neck swelling); no erythema NOSE: Normal external nose present and Normal nasal mucous membranes and turbinates present EXTERNAL EAR: Yes external ears normal EXTERNAL AUDITORY CANAL: EAC's normal TYMPANIC MEMBRANE: TM's normal bilaterally MOUTH: Normal oral and palatal mucosa present, lip normal and tongue normal TEETH & GINGIVA: Yes poor dentition and Yes other (significant diffuse dental caries) TEETH & GINGIVA IMAGES: 1. significant decay; start of gingival abscess; nothing obviously drainable at this time THROAT: posterior oropharynx normal, tonsils normal, uvula midline and other (flour of mouth is soft ) Eye: GENERAL EYE: appearance normal, both eyes and all related structures Neck/C-Spine: COMMON NORMALS: full ROM and no lymphadenopathy GENERAL: Yes normal visual inspection, No anterior neck swelling and No submandibular swelling Cardio: COMMON NORMALS: regular rate and regular rhythm RATE: regular rate RHYTHM: regular rhythm Neuro: COMMON NORMALS: patient oriented x3 and CN's II-XII intact bilaterally SENSORIUM/ORIENTATION: Yes alert, Yes oriented to person, Yes oriented to place and Yes oriented to time Skin: COMMON NORMALS: no rashes or lesions noted GENERAL SKIN EXAM: no rashes or lesions noted Course Vital Signs: Vital signs: Vital Signs Temperature 98.2 F 12/18/21 10:23 Pulse Rate 69 12/18/21 10:23 Respiratory Rate 15 12/18/21 10:23 Blood Pressure 141/90 12/18/21 10:23 Pulse Oximetry 98 12/18/21 10:23 Oxygen Delivery Me thod 12/18/21 10:23 MDM - General Adult Medical Decision Making Patient here with a dental abscess and right-sided facial swelling. She also has an abscess to the left side of her face that is being treated with Bactrim. I think we will switch her to Clindamycin which should continue to give coverage for her abscess as well as her periodontal infection. Recommend follow-up with a dentist as soon as possible. Return to ED precautions given. Otherwise she can follow-up with PCP. Discharge Plan Discharge Patient Disposition: Home Clinical Impression: Dental caries, Dental abscess Condition: Stable Prescriptions: New clindamycin HCl 300 mg capsule 300 mg PO Q6H 7 Days Qty: 28 0RF Discontinued sulfamethoxazole-trimethoprim 800-160 mg tablet 1 tab PO BID 10 Days Qty: 20 0RF No Action norethindrone (contraceptive) 0.35 mg tablet 0.35 mg PO DAILY Qty: 84 0RF metronidazole 500 mg tablet 500 mg PO BID 7 Days Qty: 14 0RF Discharge Orders: Discharge ED (Routine); Ordered 12/18/21 Ordered By: Ana Angulo Referrals: Arabella Pozo MD [Primary Care Provider] - Coding Level of Care Code ED Store Management Trainee for Agustín Penn
== END 2021-12-18 10:50 | disposition home or self-care (01) ==
PROVIDERS: Emergency Provider Physician Assistant; PCP Family Medicine
DX: K02.9 Dental caries, unspecified (principal); K04.7 Periapical abscess without sinus; F17.210 Nicotine dependence, cigarettes, uncomplicated
CPT/HCPCS: 99283

== ENCOUNTER → 2022-04-09 10:29 | Outpatient (BNVA) | payer MEDICAID, SELFPAY | PROVIDERS: PCP Family Medicine; Visit Provider Emergency Medicine | DX: R68.89 Other general symptoms and signs (principal) | CPT/HCPCS: 87400 ==

== ENCOUNTER → 2023-04-19 10:07 | Outpatient (BNVA) | payer MEDICAID, SELFPAY | PROVIDERS: PCP Family Medicine; Visit Provider Emergency Medicine | DX: J02.9 Acute pharyngitis, unspecified (principal); B34.9 Viral infection, unspecified; U07.1 COVID-19 | CPT/HCPCS: 87400; 87426 ==

== ENCOUNTER → 2023-07-17 10:59 | Outpatient (BNVA) | payer MEDICAID, SELFPAY | PROVIDERS: PCP Family Medicine; Visit Provider Emergency Medicine | DX: B34.9 Viral infection, unspecified (principal) | CPT/HCPCS: 87400; 87426 ==

== ENCOUNTER 2023-11-27 23:44 | Emergency (ER) | payer MEDICAID, SELFPAY ==
[2023-11-27 23:52] VITALS: BP 122/85; PULSE 73; RESP 14; TEMP 36.7; O2SAT 100; BMI 28.1
--- NOTE | 2023-11-28 00:43 | W.ED.FEMALGU ---
HPI - Female Genitourinary General: Chief complaint: Vaginal Bleeding Stated complaint: heavy vag bleed large blood clots Time Seen by Provider: 11/28/23 00:29 History of Present Illness: Patient presents to the ER with complaints of heavy vaginal bleeding. Patient should be approximately day one of her cycle. Patient states she has had a couple golf ball sized blood clots throughout the day and has been using up to 2 pads per hour. Patient says her cycles vary greatly usually 3 to 4 months in between. Patient denies any abdominal pain fever chills nausea vomiting diarrhea constipation, patient has had this before and she has seen Dr. Villa CATERING SERVICE MANAGER. Date of Last Menstrual Period: 10/09/23 Review of Systems General: Reports: 10 or more systems reviewed and unremarkable except in HPI and below PFSH ED PFSH: Medical History Anxiety and depression Reports history of depression after her third child in 2007. Was on medication then. She thinks it was Zoloft. She does report anxiety and being worried on and off since then and has been on medication in the past but not since 2008-- she tried celexa but had a type of anaphylaxis reaction and has not been on medication since that time. No pertinent past medical history Denies diabetes, asthma, hypertension, seizures, DVT/PE PCP: Dr. Arabella Pozo Surgical History H/O dilation and curettage X 2 --- 05/18/2012-bleeding after Cytotec induction for a missed --performed by Dr. Rodrigues at [facility] [place] ----02/13/2013--- done for vaginal bleeding after Cytotec induction of a missed performed by Dr. Samuel Villa at [facility] [place] Family History Grandmother Diabetes maternal Stroke maternal great grandmother Father Stroke Denies family history of Colon cancer Ovarian cancer Heart disease Hyperlipidemia Breast cancer Hypertension Uterine cancer Thyroid disease Social History Smoking and tobacco/nicotine status: current every day tobacco/nicotine user Substance/Drug Use: never Female Reproductive History: Date of last menstrual period: 10/09/23 Spontaneous abortions: No Physical Exam Const: COMMON NORMALS: no acute distress, average body habitus, patient oriented x3, no limitations, healthy appearing, alert and well nourished HENMT: COMMON NORMALS: normocephalic, atraumatic, hearing grossly normal bilaterally, external ears normal, Normal external nose present and moist oral mucous membranes HEAD & SCALP: normocephalic and atraumatic NOSE: Normal external nose present EXTERNAL EAR: Yes external ears normal Neck/C-Spine: COMMON NORMALS: full ROM, no lymphadenopathy, supple, no meningeal signs, no JVD and Thyroid normal THYROID: Thyroid normal Chest: COMMONS NORMALS: normal inspection of the chest and normal palpation of entire chest wall Resp: COMMON NORMALS: normal respiratory effort, No retractions, No use of accessory muscles and clear to auscultation bilaterally AUSCULTATION: clear to auscultation bilaterally Cardio: COMMON NORMALS: no JVD, regular rate, regular rhythm, S1 normal heart sound present, S2 normal heart sound present, No gallops present (Cardio), No clicks present (Cardio), No murmurs present (Cardio) and No rub (Cardio) RATE: regular rate RHYTHM: regular rhythm HEART SOUNDS: S1 normal heart sound present and S2 normal heart sound present GI: COMMON NORMALS: Normal to inspection, nondistended, normoactive bowel sounds present, Soft to palpation, non-tender, No hepatosplenomegaly present and no masses PALPATION: Yes Soft to palpation and Yes No hepatosplenomegaly present Neuro: COMMON NORMALS: patient oriented x3 SENSORIUM/ORIENTATION: Yes alert MENINGEAL SIGNS: Yes no meningeal signs Course Vital Signs: Vital signs: Vital Signs Temperature 98.1 F 11/27/23 23:52 Pulse Rate 63 11/28/23 01:37 Respiratory Rate 14 11/27/23 23:52 Blood Pressure 109/77 11/28/23 01:37 Pulse Oximetry 94 11/28/23 01:37 MDM - Female Medical Decision Making Patient CBC CMP hCG and PT/INR, all of which was essentially negative. Patient's vital signs remained stable. Patient be discharged and is to follow-up with her CATERING SERVICE MANAGER. Patient is to call their office early this morning. Medical Records I reviewed the patient's medical records. Lab Data I reviewed the patient's lab results. 11/28/23 01:00 11/28/23 01:00 Laboratory Results WBC 10.13 10^3/uL (3.29-11.43) 11/28/23 01:00 RBC 4.50 10^6/uL (3.85-5.65) 11/28/23 01:00 Hgb 13.60 g/dL (11.27-16.99) 11/28/23 01:00 Hct 41.1 % (36-47) 11/28/23 01:00 MCV 91.3 fl (85-98) 11/28/23 01:00 MCH 30.2 pg (27-33) 11/28/23 01:00 MCHC 33.1 g/dL (30-55) 11/28/23 01:00 RDW 12.4 % (12.1-15.1) 11/28/23 01:00 Plt Count 210 10^3/cmm (157-399) 11/28/23 01:00 MPV 12.0 fL (7.4-10.4) H 11/28/23 01:00 Neut % (Auto) 66.0 % 11/28/23 01:00 Lymph % (Auto) 25.2 % 11/28/23 01:00 [place] % (Auto) 6.3 % 11/28/23 01:00 Eos % (Auto) 1.6 % 11/28/23 01:00 Baso % (Auto) 0.7 % 11/28/23 01:00 Neut # (Auto) 6.69 10^3/uL (1.8-7.7) 11/28/23 01:00 Lymph # (Auto) 2.6 10^3/uL (0.8-4.8) 11/28/23 01:00 [place] # (Auto) 0.6 10^3/uL (0.2-0.9) 11/28/23 01:00 Eos # (Auto) 0.2 10^3/uL (0.0-0.8) 11/28/23 01:00 Baso # (Auto) 0.1 10^3/uL (0.0-0.1) 11/28/23 01:00 Nucleated RBC % (auto) 0 % 11/28/23 01:00 Nucleated RBCs # 0.0 /100WBC 11/28/23 01:00 PT 12.70 SECONDS (12.1-14.9) 11/28/23 01:00 INR 0.93 (0.8-1.2) 11/28/23 01:00 Sodium 142 mmol/L (136-145) 11/28/23 01:00 Potassium 3.4 mmol/L (3.5-5.1) L 11/28/23 01:00 Chloride 107 mmol/L (98-107) 11/28/23 01:00 Carbon Dioxide 23 mmol/L (22-29) 11/28/23 01:00 Anion Gap 15.4 (5-19) 11/28/23 01:00 BUN 15 mg/dL (6-20) 11/28/23 01:00 Creatinine 0.8 mg/dL (0.5-0.9) 11/28/23 01:00 GFR Calculation 80.3 mL/min (90-130) L 11/28/23 01:00 Glucose 97 mg/dL (65-115) 11/28/23 01:00 Calculated Osmolality 295 mOsm/kg (285-295) 11/28/23 01:00 Calcium 8.7 mg/dL (8.5-10.5) 11/28/23 01:00 Total Bilirubin 0.3 mg/dL (0.15-1.2) 11/28/23 01:00 AST 10 U/L (0-32) 11/28/23 01:00 ALT 11 U/L (0-33) 11/28/23 01:00 Alkaline Phosphatase 63 U/L (35-105) 11/28/23 01:00 Total Protein 7.3 g/dL (6.6-8.7) 11/28/23 01:00 Albumin 4.2 g/dL (3.5-5.2) 11/28/23 01:00 Globulin 3.1 g/dL (1.3-4.6) 11/28/23 01:00 HCG, Qual Negative (Negative) 11/28/23 01:00 All radiology interpretation(s) finalized by discharge Discharge Plan Discharge Patient Disposition: Home Clinical Impression: Abnormal uterine bleeding (AUB) Condition: Stable Prescriptions: No Action fluticasone propionate [Flonase Allergy Relief] 50 mcg/actuation spray,suspension 2 spray intranasal DAILY Qty: 16 0RF Rx Instructions: administer into each nostril albuterol sulfate 90 mcg/actuation HFA aerosol inhaler 2 inh inhalation Q4H PRN (Reason: shortness of breath or wheezing) Qty: 6.7 0RF Rx Instructions: with chamber Discharge Orders: Discharge ED (Routine); Ordered 11/28/23 Ordered By: Phoenix Chaney Referrals: Arabella Pozo MD [Primary Care Provider] - 1 week Patient Instructions: Abnormal (Dysfunctional) Uterine Bleeding (ED) Activity Restrictions/Additional Instructions: Your lab work in ER was essentially unremarkable. Please follow-up with your CATERING SERVICE MANAGER for further evaluation and treatment. Please call their office during business hours to arrange follow-up. Thank you for choosing [facility] for your healthcare needs today. Please realize that you were seen in the emergency department and that we are providing you with an emergency medical screening exam and this may not be a complete and all exclusive of all testing and/or medical workup we may need to determine your element or severity of your illness. It is very important that you follow-up as instructed with your primary care provider or specialist for the additional evaluation and to discuss your medical treatment plan. You may return to the emergency department should you have concerns or if your condition changes or worsens in any way. Coding Level of Care Code ED Psych Coordinator for Agustín Penn
[2023-11-28 00:44] VITALS: BP 131/89
[2023-11-28 01:16] LABS: Basophils # 0.1 10^3/uL (0.0-0.1); Basophils % 0.7 %; Eosinophils # 0.2 10^3/uL (0.0-0.8); Eosinophils % 1.6 %; Hematocrit 41.1 % (36-47); Lymphocytes # 2.6 10^3/uL (0.8-4.8); Lymphocytes % 25.2 %; Mean Corpuscular HGB Conc 33.1 g/dL (30-55); Mean Corpuscular Hemoglobin 30.2 pg (27-33); Mean Corpuscular Volume 91.3 fl (85-98); Monocytes # 0.6 10^3/uL (0.2-0.9); Monocytes % 6.3 %; Neutrophils # 6.69 10^3/uL (1.8-7.7); Nucleated Red Blood Cells % 0 %; Platelet Count 210 10^3/cmm (157-399); Red Cell Distribution Width 12.4 % (12.1-15.1); White Blood Count 10.13 10^3/uL (3.29-11.43)
[2023-11-28 01:26] LABS: INR 0.93 (0.8-1.2)
[2023-11-28 01:30] LABS: Alanine Aminotransferase 11 U/L (0-33); Albumin Level 4.2 g/dL (3.5-5.2); Alkaline Phosphatase 63 U/L (35-105); Anion Gap 15.4 (5-19); Aspartate Amino Transferase 10 U/L (0-32); Blood Urea Nitrogen 15 mg/dL (6-20); Calcium 8.7 mg/dL (8.5-10.5); Carbon Dioxide 23 mmol/L (22-29); Chloride 107 mmol/L (98-107); Creatinine Clr Calc Pharmacy 104.7908; Globulin 3.1 g/dL (1.3-4.6); Glomerular Filtration Rate 80.3 mL/min (90-130); Glucose 97 mg/dL (65-115); Osmolality Calculated 295 mOsm/kg (285-295); Potassium 3.4 mmol/L (3.5-5.1); Sodium 142 mmol/L (136-145); Total Bilirubin 0.3 mg/dL (0.15-1.2); Total Protein 7.3 g/dL (6.6-8.7)
[2023-11-28 01:31] LABS: HCG, Serum Qual Negative (Negative)
[2023-11-28 01:37] VITALS: BP 109/77; PULSE 63; O2SAT 94
[2023-11-28 01:48] VITALS: BP 104/70; PULSE 63; RESP 18; O2SAT 96
== END 2023-11-28 01:54 | disposition home or self-care (01) ==
PROVIDERS: Emergency Provider Emergency Medicine; PCP Family Medicine
DX: N93.9 Abnormal uterine and vaginal bleeding, unspecified (principal); Z72.0 Tobacco use
CPT/HCPCS: 36415; 80053; 84703; 85025; 85610; 99283

== ENCOUNTER → 2024-07-01 18:03 | Outpatient (BNVA) | payer MEDICAID, SELFPAY | PROVIDERS: PCP Family Medicine; Visit Provider Family Medicine | DX: R50.9 Fever, unspecified (principal); J06.9 Acute upper respiratory infection, unspecified | CPT/HCPCS: 87400 ==